=== PATIENT | female | born 1985 | race Caucasian/White ===

== ENCOUNTER → 2018-01-08 | Outpatient (CLI) | payer OTHER ==
[~2018-01-08] MED LIST: ACET325 PO; Amoxicillin500 MG PO; CEPH500 PO; CIPR500 PO; CLIN150 PO; CYCL10 PO; GAVILAX17 GM PO; HYDACE5 PO; Keflex500 MG PO; Kristalose20 GM PO; LEVFLO500 PO; LIDO2L MM; METH10 PO; METO25ER PO; NAPR500 PO; ONDA4ODT MM; OXYACE5T PO; PROM25S PR; RXCEPH500 PO; RXCLIN PO; RXOXYACE PO; Zofran Odt4 MG SL; Zofran Odt8 MG SL
[2018-01-08 15:05] LABS: Specimen Source CERVIX
[2018-01-09 13:15] LABS: Source Cervix
[2018-01-10 13:03] LABS: HPV Genotype 16 Not Detected (NOTDET); HPV Genotype 18 Not Detected (NOTDET)
[2018-01-17 10:25] LABS: HPV High Risk Other Not Detected (NOTDET)
== END ==
LOC: LAB SHORT 12:50 → OLS 12:50
PROVIDERS: Nurse Practitioner Women's Health
DX: Z12.4 Encounter for screening for malignant neoplasm of cervix (principal); Z20.2 Contact with and (suspected) exposure to infections with a predominantly sexual mode of transmission
CPT/HCPCS: 87491; 87591; 87624; G0123

== ENCOUNTER → 2018-01-25 | Outpatient (CLI) | payer OTHER ==
[2018-01-25 11:20] LABS: Source, Urine Catheter
[2018-01-25 13:48] LABS: Appearance, Urine Hazy (Clear); Bilirubin, Urine Neg (Neg); Blood, Urine 5+ (Neg); Color, Urine Yellow (P-Yellow); Glucose Qualitative, Urine Neg (Neg); Ketones, Urine Neg (Neg); Leukocyte Esterase, Urine 1+ (Neg); Nitrite, Urine Pos (Neg); Protein, Urine 1+ (Neg); Urobilinogen, Urine NORM (Normal)
[2018-01-25 14:02] LABS: Red Blood Cells, Urine TNTC /hpf (0-2)
[2018-01-25 14:03] LABS: Bacteria Many /hpf; Squamous Epithelial Cells Few /hpf (Few)
== END | disposition home or self-care (01) ==
LOC: OLS 11:17 → LAB SHORT 11:17
PROVIDERS: Nurse Practitioner Women's Health
DX: R31.9 Hematuria, unspecified (principal)
CPT/HCPCS: 81001

== ENCOUNTER 2018-02-06 23:46 | Emergency (ER) | payer OTHER ==
[~2018-02-06] VITALS: Ht 157.5 cm; Wt 54.4 kg
[2018-02-07 01:00] LABS: Source, Urine Clean Catch
[2018-02-07 01:06] LABS: Appearance, Urine Hazy (Clear); Bilirubin, Urine Neg (Neg); Blood, Urine 5+ (Neg); Color, Urine Yellow (P-Yellow); Glucose Qualitative, Urine Neg (Neg); Ketones, Urine Neg (Neg); Leukocyte Esterase, Urine 2+ (Neg); Nitrite, Urine Neg (Neg); Protein, Urine 2+ (Neg); Specific Gravity, Urine 1.025 (1.003-1.022); Urobilinogen, Urine NORM (Normal)
[2018-02-07 01:15] LABS: White Blood Cells, Urine 25-50 /hpf (0-5)
[2018-02-07 01:16] LABS: Bacteria Many /hpf; Red Blood Cells, Urine 50-100 /hpf (0-2); Squamous Epithelial Cells Mod /hpf (Few); Yeast/Fungi Urine Few /hpf
[2018-02-07 01:29] LABS: BASOPHILS ABSOLUTE AUTO 0.05 K/mm3 (0.00-0.23); BASOPHILS PERCENT AUTO 1 % (0-2); EOSINOPHILS ABSOLUTE AUTO 0.15 K/mm3 (0.00-0.68); EOSINOPHILS PERCENT AUTO 2 % (0-6); Hematocrit 41.8 % (33.0-51.0); Hemoglobin 14.1 g/dL (11.5-16.0); IMMATURE GRAN ABSOLUTE AUTO 0.02 K/mm3 (0.00-0.10); IMMATURE GRAN PERCENT AUTO 0 % (0-1); LYMPHOCYTES PERCENT AUTO 26 % (21-46); MONOCYTES ABSOLUTE AUTO 0.54 K/mm3 (0.16-1.47); MONOCYTES PERCENT AUTO 6 % (4-13); Mean Corpuscular HGB 29.9 pg (26.0-34.0); Mean Corpuscular HGB Conc 33.7 g/dL (31.5-36.5); Mean Corpuscular Volume 89 fL (80-100); Mean Platelet Volume 9.1 fL (9.1-12.4); NEUTROPHILS ABSOLUTE AUTO 6.49 K/mm3 (1.96-9.15); NEUTROPHILS PERCENT AUTO 66 % (41-73); Platelet Count 253 K/mm3 (150-400); RDW Coefficient Variation 12.3 % (11.7-14.2); RDW Standard Deviation 40.3 fL (35.1-46.3); Red Blood Cell Count 4.72 M/mm3 (3.80-5.20); White Blood Cell Count 9.85 K/mm3 (4.00-11.30)
[2018-02-07 01:44] LABS: Anion Gap 5 mmol/L (6-16); Blood Urea Nitrogen 15 mg/dL (8-24); Bun/Creatinine Ratio 25.3 (12.0-20.0); CO2, Blood 27 mmol/L (21-32); Calcium, Blood 8.5 mg/dL (8.5-10.1); Chloride, Blood 108 mmol/L (98-108); Creatinine, Blood 0.59 mg/dL (0.40-1.00); Glomerular Filtration Rate >60 (60-); Glucose, Blood 91 mg/dL (70-99); Potassium, Blood 4.2 mmol/L (3.5-5.5); Sodium, Blood 140 mmol/L (136-145)
[2018-02-07] MEDS ORDERED: CEPH500 PO (02:03)
== END 2018-02-07 02:30 | disposition home or self-care (01) ==
LOC: ER 23:46
PROVIDERS: Emergency Medicine
DX: N39.0 Urinary tract infection, site not specified (principal); R31.9 Hematuria, unspecified; Z88.1 Allergy status to other antibiotic agents; Z88.6 Allergy status to analgesic agent; Z91.041 Radiographic dye allergy status; Z79.2 Long term (current) use of antibiotics; Z79.899 Other long term (current) drug therapy; I10 Essential (primary) hypertension; F17.200 Nicotine dependence, unspecified, uncomplicated
CPT/HCPCS: 36415; 80048; 81001; 81025; 85025; 87086; 99283

== ENCOUNTER → 2018-02-09 | Outpatient (CLI) | payer OTHER | END | disposition home or self-care (01) | LOC: LAB 12:58 → LAB SHORT 12:58 | DX: N39.0 Urinary tract infection, site not specified (principal) | CPT/HCPCS: 87086 ==

== ENCOUNTER → 2019-01-16 | Outpatient (CLI) | payer OTHER ==
[~2019-01-16] MED LIST changes: +METO50ER PO; +Prednisone20 MG PO
[2019-01-16 14:57] LABS: BASOPHILS ABSOLUTE AUTO 0.02 K/mm3 (0.00-0.23); BASOPHILS PERCENT AUTO 0 % (0-2); EOSINOPHILS PERCENT AUTO 1 % (0-6); Hematocrit 41.6 % (33.0-51.0); Hemoglobin 14.2 g/dL (11.5-16.0); IMMATURE GRAN ABSOLUTE AUTO 0.03 K/mm3 (0.00-0.10); IMMATURE GRAN PERCENT AUTO 0 % (0-1); LYMPHOCYTES ABSOLUTE AUTO 1.17 K/mm3 (0.84-5.20); LYMPHOCYTES PERCENT AUTO 16 % (21-46); MONOCYTES ABSOLUTE AUTO 0.52 K/mm3 (0.16-1.47); MONOCYTES PERCENT AUTO 7 % (4-13); Mean Corpuscular HGB 29.2 pg (26.0-34.0); Mean Corpuscular HGB Conc 34.1 g/dL (31.5-36.5); Mean Corpuscular Volume 85 fL (80-100); Mean Platelet Volume 9.6 fL (9.1-12.4); NEUTROPHILS ABSOLUTE AUTO 5.71 K/mm3 (1.96-9.15); NEUTROPHILS PERCENT AUTO 76 % (41-73); Platelet Count 182 K/mm3 (150-400); RDW Coefficient Variation 12.7 % (11.7-14.2); RDW Standard Deviation 39.4 fL (35.1-46.3); Red Blood Cell Count 4.87 M/mm3 (3.80-5.20); White Blood Cell Count 7.55 K/mm3 (4.00-11.30)
[2019-01-16 15:05] LABS: Alanine Aminotransfer (ALT/SGP 83 U/L (12-78); Albumin, Blood 3.7 g/dL (3.4-5.0); Albumin/Globulin Ratio 0.9 (0.8-1.8); Alk Phos 96 U/L (40-126); Anion Gap 8 mmol/L (6-16); Aspartate Aminotrans (AST/SGOT 42 U/L (12-37); Bilirubin, Total 0.4 mg/dL (0.1-1.0); Blood Urea Nitrogen 14 mg/dL (8-24); Bun/Creatinine Ratio 16.1 (12.0-20.0); CO2, Blood 28 mmol/L (21-32); Calcium, Blood 8.6 mg/dL (8.5-10.1); Chloride, Blood 98 mmol/L (98-108); Creatinine, Blood 0.87 mg/dL (0.40-1.00); Globulin, Blood 4.1 g/dL (2.2-4.0); Glomerular Filtration Rate >60 (60-); Glucose, Blood 118 mg/dL (70-99); Potassium, Blood 4.2 mmol/L (3.5-5.5); Sodium, Blood 134 mmol/L (136-145); Total Protein, Blood 7.8 g/dL (6.4-8.2)
[2019-01-18 01:08] LABS: HBSAG SCREEN Negative (Negative); HEP A AB, IGM Negative (Negative); HEP B CORE AB, IGM Negative (Negative); HEP C VIRUS AB <0.1 (0.0-0.9)
== END | disposition home or self-care (01) ==
LOC: LAB EV 14:47 → LAB SHORT 14:47
PROVIDERS: Physician Assistant
DX: M79.10 Myalgia, unspecified site (principal); Z87.448 Personal history of other diseases of urinary system
CPT/HCPCS: 80053; 80074; 85025; 85651; 86140

== ENCOUNTER 2021-10-30 05:12 | Emergency (ER) | payer OTHER ==
[~2021-10-30] VITALS: Ht 157.5 cm; Wt 61.2 kg
== END 2021-10-30 07:16 | disposition home or self-care (01) ==
LOC: ER 05:12
DX: S61.211A Laceration without foreign body of left index finger without damage to nail, initial encounter (principal); I10 Essential (primary) hypertension; Z88.1 Allergy status to other antibiotic agents; Z88.8 Allergy status to other drugs, medicaments and biological substances; Z91.048 Other nonmedicinal substance allergy status; Z79.899 Other long term (current) drug therapy; W45.8XXA Other foreign body or object entering through skin, initial encounter
CPT/HCPCS: 12001; 99282-25

== ENCOUNTER 2022-02-11 19:05 | Emergency (ER) | payer OTHER ==
[~2022-02-11] VITALS: Ht 157.5 cm; Wt 65.8 kg
[2022-02-11 21:02] LABS: Influenza A, PCR POSITIVE (NEGATIVE); Influenza B, PCR NEGATIVE (NEGATIVE); Resp Syncytial Virus, PCR NEGATIVE (NEGATIVE); SARS-Cov-2 (COVID-19) PCR, MMC NEGATIVE (NEGATIVE)
== END 2022-02-11 21:29 | disposition home or self-care (01) ==
LOC: ER 19:05
PROVIDERS: Physician Assistant
DX: J11.1 Influenza due to unidentified influenza virus with other respiratory manifestations (principal); I10 Essential (primary) hypertension; R00.0 Tachycardia, unspecified; F17.210 Nicotine dependence, cigarettes, uncomplicated; Z88.6 Allergy status to analgesic agent; Z79.899 Other long term (current) drug therapy; Z88.1 Allergy status to other antibiotic agents; Z91.041 Radiographic dye allergy status; Z20.822 Contact with and (suspected) exposure to COVID-19
CPT/HCPCS: 0241U; A9270

== ENCOUNTER 2023-07-09 01:31 | Emergency (ER) | payer OTHER ==
[~2023-07-09] VITALS: Ht 157.5 cm; Wt 70.3 kg
[~2023-07-09 01:31] MED LIST changes: +Ondansetron Odt8 MG MM
[2023-07-09 01:43] VITALS: BP 161/99
[2023-07-09] MEDS ORDERED: Bactrim Ds Tab1 EACH PO (02:56)
[2023-07-09] MEDS ORDERED: CEPH500 PO (02:56)
== END 2023-07-09 03:09 | disposition home or self-care (01) ==
LOC: ER 01:31
DX: L03.116 Cellulitis of left lower limb (principal); F17.210 Nicotine dependence, cigarettes, uncomplicated; I10 Essential (primary) hypertension; Z88.6 Allergy status to analgesic agent; Z88.1 Allergy status to other antibiotic agents; Z91.041 Radiographic dye allergy status; Z79.899 Other long term (current) drug therapy
CPT/HCPCS: 10060; 99283-25; A9270

== ENCOUNTER → 2024-06-10 | Outpatient (CLI) | payer OTHER ==
[~2024-06-10] MED LIST changes: +Bactrim Ds Tab1 EACH PO; +METH40 PO
== END | disposition home or self-care (01) ==
LOC: LAB SHORT 18:40 → LAB 18:40
DX: L03.116 Cellulitis of left lower limb (principal)
CPT/HCPCS: 87070; 87075; 87077; 87147; 87186; 87205

== ENCOUNTER 2024-08-03 01:33 | Emergency (ER) | payer OTHER ==
[~2024-08-03] VITALS: Ht 157.5 cm; Wt 54.4 kg
[2024-08-03 01:57] VITALS: BP 132/100
[2024-08-03] MEDS ORDERED: Acetaminophen 500 MG Tab PO ONE (02:15)
== END 2024-08-03 02:57 | disposition home or self-care (01) ==
LOC: ER 01:33
DX: S10.0XXA Contusion of throat, initial encounter (principal); W01.198A Fall on same level from slipping, tripping and stumbling with subsequent striking against other object, initial encounter; I10 Essential (primary) hypertension; F17.200 Nicotine dependence, unspecified, uncomplicated; Z88.1 Allergy status to other antibiotic agents; Z88.8 Allergy status to other drugs, medicaments and biological substances; Z91.041 Radiographic dye allergy status
CPT/HCPCS: 99283

== ENCOUNTER 2024-08-17 11:05 | Emergency (ER) | payer OTHER ==
[~2024-08-17] VITALS: Ht 157.5 cm; Wt 59.0 kg
[2024-08-17 11:27] VITALS: BP 160/118
[2024-08-17 12:04] LABS: BASOPHILS ABSOLUTE AUTO 0.03 K/mm3 (0.00-0.23); BASOPHILS PERCENT AUTO 0 % (0-2); EOSINOPHILS ABSOLUTE AUTO 0.36 K/mm3 (0.00-0.68); EOSINOPHILS PERCENT AUTO 5 % (0-6); Hematocrit 43.6 % (33.0-51.0); Hemoglobin 14.4 g/dL (11.5-16.0); IMMATURE GRAN ABSOLUTE AUTO 0.01 K/mm3 (0.00-0.10); IMMATURE GRAN PERCENT AUTO 0 % (0-1); LYMPHOCYTES ABSOLUTE AUTO 1.53 K/mm3 (0.84-5.20); LYMPHOCYTES PERCENT AUTO 20 % (21-46); MONOCYTES ABSOLUTE AUTO 0.65 K/mm3 (0.16-1.47); MONOCYTES PERCENT AUTO 8 % (4-13); Mean Corpuscular HGB 29.1 pg (26.0-34.0); Mean Corpuscular Volume 88 fL (80-100); Mean Platelet Volume 9.2 fL (9.1-12.4); NEUTROPHILS ABSOLUTE AUTO 5.28 K/mm3 (1.96-9.15); NEUTROPHILS PERCENT AUTO 67 % (41-73); Platelet Count 245 K/mm3 (150-400); RDW Coefficient Variation 12.7 % (11.7-14.2); RDW Standard Deviation 41.3 fL (35.1-46.3); Red Blood Cell Count 4.94 M/mm3 (3.80-5.20); White Blood Cell Count 7.86 K/mm3 (4.00-11.30)
[2024-08-17 12:18] LABS: Albumin, Blood 3.7 g/dL (3.4-5.0); Albumin/Globulin Ratio 0.8 (0.8-1.8); Bilirubin, Total 0.3 mg/dL (0.1-1.0); Bun/Creatinine Ratio 19.3 (12.0-20.0); Calcium, Blood 9.2 mg/dL (8.5-10.1); Creatinine, Blood 0.62 mg/dL (0.40-1.00); Globulin, Blood 4.4 g/dL (2.2-4.0); Potassium, Blood 5.1 mmol/L (3.5-5.5); Total Protein, Blood 8.1 g/dL (6.4-8.2)
[2024-08-17] MEDS ORDERED: Fluorescein Sod 1MG Opth Strips LEFTEYE ONE (13:25)
[2024-08-17] MEDS ORDERED: Tetracaine HCl/Pf 0.5% Opth Soln 4 ml LEFTEYE ONE (13:25)
[2024-08-17] MEDS ORDERED: Prochlorperazine Edisylate 10 mg Vial IV ONE (13:30)
[2024-08-17] MEDS ORDERED: Acetaminophen/Aspirin/Caffeine 250/250/65 MG PO ONE (13:30)
[2024-08-17] MEDS ORDERED: ONDA4ODT MM (14:44)
[2024-08-17] MEDS ORDERED: ERYT1OIN LEFTEYE (14:44)
[2024-08-17] MEDS ORDERED: Erythromycin 0.5% Opth Oint 1 gm LEFTEYE ONE (14:45)
[2024-08-18] MEDS ORDERED: MOXIOPS UD (06:04)
[2024-08-18] MEDS ORDERED: ERYT.5TO BOTHEYES (06:05)
== END 2024-08-17 15:35 | disposition home or self-care (01) ==
LOC: ER 11:05
PROVIDERS: Physician Assistant
DX: S05.02XA Injury of conjunctiva and corneal abrasion without foreign body, left eye, initial encounter (principal); I10 Essential (primary) hypertension; R51.9 Headache, unspecified; F17.200 Nicotine dependence, unspecified, uncomplicated; X58.XXXA Exposure to other specified factors, initial encounter; Z79.899 Other long term (current) drug therapy; Z88.1 Allergy status to other antibiotic agents; Z88.5 Allergy status to narcotic agent; Z91.041 Radiographic dye allergy status
CPT/HCPCS: 70450; 80053; 84703; 85025; 96374; 99284-25; A9270; J0780

== ENCOUNTER 2024-08-17 22:27 | Emergency (ER) | payer OTHER ==
[~2024-08-17] VITALS: Ht 157.5 cm; Wt 59.0 kg
[~2024-08-17 22:27] MED LIST changes: +ERYT1OIN LEFTEYE
[2024-08-18] MEDS ORDERED: Fluorescein Sod 1MG Opth Strips LEFTEYE ONE (02:25)
[2024-08-18] MEDS ORDERED: Tetrahydrozoline 0.05% Opth Soln 15 ML LEFTEYE ONE (02:25)
[2024-08-18] MEDS ORDERED: Tetracaine HCl/Pf 0.5% Opth Soln 4 ml ONE (04:16)
[2024-08-18] MEDS ORDERED: OPTH LEFTEYE ONE (05:30)
[2024-08-18] MEDS ORDERED: MOXIFLOXACIN 0.5% LEFTEYE ONE (05:30)
[2024-08-18] MEDS ORDERED: Erythromycin 0.5% Opth Oint 1 gm LEFTEYE ONE (05:35)
[2024-08-18] MEDS ORDERED: MOXIOPS UD (06:04)
[2024-08-18] MEDS ORDERED: ERYT.5TO BOTHEYES (06:05)
[2024-08-18 06:17] VITALS: BP 130/86
[2024-08-18] MEDS ORDERED: Tetracaine HCl/Pf 0.5% Opth Soln 4 ml BOTHEYES ONE (14:20)
== END 2024-08-18 06:20 | disposition home or self-care (01) ==
LOC: ER 22:27
DX: H16.002 Unspecified corneal ulcer, left eye (principal); F17.200 Nicotine dependence, unspecified, uncomplicated; Z79.899 Other long term (current) drug therapy; Z88.1 Allergy status to other antibiotic agents; Z88.5 Allergy status to narcotic agent; Z91.040 Latex allergy status; S05.02XA Injury of conjunctiva and corneal abrasion without foreign body, left eye, initial encounter; I10 Essential (primary) hypertension; R51.9 Headache, unspecified; X58.XXXA Exposure to other specified factors, initial encounter; Z91.041 Radiographic dye allergy status
CPT/HCPCS: 70450; 80053; 84703; 85025; 96374; 99283; 99284-25; A9270; J0780

== ENCOUNTER 2024-09-13 19:20 | Emergency (ER) | payer OTHER ==
[~2024-09-13] VITALS: Ht 157.5 cm; Wt 59.0 kg
[~2024-09-13 19:20] MED LIST changes: +ERYT.5TO BOTHEYES; +MOXIOPS UD
[2024-09-13 19:38] VITALS: BP 154/96
[2024-09-13] MEDS ORDERED: Methadone HCL 10 MG TAB PO ONE (20:00)
== END 2024-09-13 20:24 | disposition home or self-care (01) ==
LOC: ER 19:20
DX: F11.90 Opioid use, unspecified, uncomplicated (principal); Z76.0 Encounter for issue of repeat prescription; I10 Essential (primary) hypertension; F17.210 Nicotine dependence, cigarettes, uncomplicated; Z79.899 Other long term (current) drug therapy; Z88.6 Allergy status to analgesic agent; Z88.1 Allergy status to other antibiotic agents; Z91.041 Radiographic dye allergy status
CPT/HCPCS: 99281; A9270

== ENCOUNTER 2024-09-14 20:52 | Emergency (ER) | payer OTHER ==
[~2024-09-14] VITALS: Ht 157.5 cm; Wt 59.0 kg
[2024-09-14 20:57] VITALS: BP 157/105
[2024-09-14] MEDS ORDERED: Methadone HCL 10 MG TAB PO ONE (21:00)
[2024-09-14] MEDS ORDERED: Methadone HCL 10 MG TAB ONE (21:06)
== END 2024-09-14 21:18 | disposition home or self-care (01) ==
LOC: ER 20:52
DX: Z76.89 Persons encountering health services in other specified circumstances (principal); I10 Essential (primary) hypertension; F17.200 Nicotine dependence, unspecified, uncomplicated; Z88.1 Allergy status to other antibiotic agents; Z88.6 Allergy status to analgesic agent; Z91.041 Radiographic dye allergy status; Z79.899 Other long term (current) drug therapy
CPT/HCPCS: 99281; A9270

== ENCOUNTER 2024-09-15 19:25 | Emergency (ER) | payer OTHER ==
[~2024-09-15] VITALS: Ht 157.5 cm; Wt 59.0 kg
[2024-09-15] MEDS ORDERED: Methadone HCL 10 MG TAB PO ONE (19:35)
[2024-09-15 19:45] VITALS: BP 137/102
== END 2024-09-15 20:30 | disposition home or self-care (01) ==
LOC: ER 19:25
DX: Z76.89 Persons encountering health services in other specified circumstances (principal); F11.20 Opioid dependence, uncomplicated; F17.200 Nicotine dependence, unspecified, uncomplicated; I10 Essential (primary) hypertension; Z88.1 Allergy status to other antibiotic agents; Z88.6 Allergy status to analgesic agent; Z91.041 Radiographic dye allergy status; Z79.899 Other long term (current) drug therapy
CPT/HCPCS: 99281

== ENCOUNTER 2024-10-19 23:37 | Emergency (ER) | payer OTHER ==
[~2024-10-19] VITALS: Ht 157.5 cm; Wt 72.6 kg
[2024-10-19] MEDS ORDERED: Methadone HCL 10 MG TAB PO ONE (23:50)
[2024-10-20 00:03] VITALS: BP 159/113
== END 2024-10-20 00:10 | disposition home or self-care (01) ==
LOC: ER 23:37
DX: Z76.89 Persons encountering health services in other specified circumstances (principal); I10 Essential (primary) hypertension; F17.210 Nicotine dependence, cigarettes, uncomplicated; Z88.1 Allergy status to other antibiotic agents; Z88.5 Allergy status to narcotic agent; Z91.041 Radiographic dye allergy status; Z79.899 Other long term (current) drug therapy
CPT/HCPCS: 99281; A9270

== ENCOUNTER 2024-11-03 15:21 | Emergency (ER) | payer OTHER ==
[~2024-11-03] VITALS: Ht 162.6 cm; Wt 72.6 kg
[2024-11-03 15:56] VITALS: BP 189/120
[2024-11-03] MEDS ORDERED: Methadone HCL 10 MG TAB PO ONE (16:00)
== END 2024-11-03 16:03 | disposition home or self-care (01) ==
LOC: ER 15:21
DX: Z76.0 Encounter for issue of repeat prescription (principal); I10 Essential (primary) hypertension; F17.200 Nicotine dependence, unspecified, uncomplicated; Z79.899 Other long term (current) drug therapy; Z88.1 Allergy status to other antibiotic agents; Z88.6 Allergy status to analgesic agent; Z91.041 Radiographic dye allergy status
CPT/HCPCS: 99281; A9270

== ENCOUNTER 2024-11-10 22:16 | Emergency (ER) | payer OTHER ==
[~2024-11-10] VITALS: Ht 157.5 cm; Wt 63.5 kg
[2024-11-10 22:38] VITALS: BP 150/110
[2024-11-10] MEDS ORDERED: Methadone HCL 10 MG TAB PO ONE (22:45)
== END 2024-11-10 22:56 | disposition home or self-care (01) ==
LOC: ER 22:16
DX: Z76.89 Persons encountering health services in other specified circumstances (principal); I10 Essential (primary) hypertension; F17.210 Nicotine dependence, cigarettes, uncomplicated; Z88.1 Allergy status to other antibiotic agents; Z91.041 Radiographic dye allergy status; Z88.5 Allergy status to narcotic agent; Z79.899 Other long term (current) drug therapy
CPT/HCPCS: 99281; A9270

== ENCOUNTER 2024-12-18 03:35 | Emergency (ER) | payer OTHER ==
[~2024-12-18] VITALS: Ht 157.5 cm; Wt 150.0 kg
[2024-12-18 03:48] VITALS: BP 132/91
[2024-12-18 04:00] LABS: BASOPHILS ABSOLUTE AUTO 0.04 K/mm3 (0.00-0.23); BASOPHILS PERCENT AUTO 0 % (0-2); EOSINOPHILS ABSOLUTE AUTO 0.19 K/mm3 (0.00-0.68); EOSINOPHILS PERCENT AUTO 2 % (0-6); Hematocrit 39.1 % (33.0-51.0); Hemoglobin 13.2 g/dL (11.5-16.0); IMMATURE GRAN ABSOLUTE AUTO 0.02 K/mm3 (0.00-0.10); IMMATURE GRAN PERCENT AUTO 0 % (0-1); LYMPHOCYTES ABSOLUTE AUTO 2.32 K/mm3 (0.84-5.20); LYMPHOCYTES PERCENT AUTO 26 % (21-46); MONOCYTES ABSOLUTE AUTO 1.33 K/mm3 (0.16-1.47); MONOCYTES PERCENT AUTO 15 % (4-13); Mean Corpuscular HGB 28.3 pg (26.0-34.0); Mean Corpuscular HGB Conc 33.8 g/dL (31.5-36.5); Mean Corpuscular Volume 84 fL (80-100); Mean Platelet Volume 8.8 fL (9.1-12.4); NEUTROPHILS ABSOLUTE AUTO 5.02 K/mm3 (1.96-9.15); NEUTROPHILS PERCENT AUTO 56 % (41-73); Platelet Count 268 K/mm3 (150-400); RDW Coefficient Variation 13.1 % (11.7-14.2); RDW Standard Deviation 40.2 fL (35.1-46.3); Red Blood Cell Count 4.66 M/mm3 (3.80-5.20); White Blood Cell Count 8.92 K/mm3 (4.00-11.30)
[2024-12-18] MEDS ORDERED: NS 1,000 ML IV SCH (04:05)
[2024-12-18] MEDS ORDERED: Phenazopyridine HCl 100 MG Tab PO ONE (04:05)
[2024-12-18 04:22] LABS: Albumin, Blood 3.4 g/dL (3.4-5.0); Albumin/Globulin Ratio 0.7 (0.8-1.8); Bilirubin, Total 0.4 mg/dL (0.1-1.0); Bun/Creatinine Ratio 17.2 (12.0-20.0); Calcium, Blood 8.5 mg/dL (8.5-10.1); Creatinine, Blood 0.7 mg/dL (0.40-1.00); Globulin, Blood 4.6 g/dL (2.2-4.0); Potassium, Blood 4.5 mmol/L (3.5-5.5)
[2024-12-18 07:38] LABS: Source, Urine Clean Catch
[2024-12-18 07:49] LABS: Appearance, Urine Hazy (Clear); Bilirubin, Urine Neg (Neg); Blood, Urine 2+ (Neg); Color, Urine Amber (P-Yellow); Glucose Qualitative, Urine Neg (Neg); Ketones, Urine 1+ (Neg); Leukocyte Esterase, Urine 1+ (Neg); Nitrite, Urine Pos (Neg); Protein, Urine 2+ (Neg); Urobilinogen, Urine 1+ (Normal)
[2024-12-18 08:03] LABS: Bacteria Many /hpf; Mucus Light (0-Heavy); Squamous Epithelial Cells Rare /hpf (Few)
[2024-12-18 08:05] LABS: Hyaline Casts 0-2 /lpf (0-2)
[2024-12-18] MEDS ORDERED: Ciprofloxacin 500 MG Tab PO ONE (08:25)
[2024-12-18] MEDS ORDERED: CIPR500 PO (08:26)
== END 2024-12-18 08:47 | disposition home or self-care (01) ==
LOC: ER 03:35
PROVIDERS: Emergency Medicine
DX: R10.9 Unspecified abdominal pain (principal); E86.0 Dehydration; I10 Essential (primary) hypertension; F17.200 Nicotine dependence, unspecified, uncomplicated; Z88.1 Allergy status to other antibiotic agents; Z88.5 Allergy status to narcotic agent; Z91.041 Radiographic dye allergy status; Z79.899 Other long term (current) drug therapy
CPT/HCPCS: 76770; 80053; 81001; 84703; 85025; 87077; 87086; 87186; 99284-25; A9270; J7030

== ENCOUNTER 2025-01-10 01:03 | Emergency (ER) | payer OTHER ==
[~2025-01-10] VITALS: Ht 157.5 cm; Wt 68.0 kg
[2025-01-10 02:55] VITALS: BP 159/115
[2025-01-10 03:25] LABS: Source, Urine Clean Catch
[2025-01-10 03:40] LABS: Bilirubin, Urine Neg (Neg); Blood, Urine Neg (Neg); Glucose Qualitative, Urine Neg (Neg); Ketones, Urine Neg (Neg); Leukocyte Esterase, Urine Neg (Neg); Nitrite, Urine Neg (Neg); Protein, Urine Neg (Neg); Urobilinogen, Urine NORM (Normal)
[2025-01-10 03:41] LABS: Appearance, Urine Hazy (Clear); Color, Urine Yellow (P-Yellow)
[2025-01-10 03:42] LABS: Bacteria Few /hpf; Red Blood Cells, Urine 0-2 /hpf (0-2); Squamous Epithelial Cells Rare /hpf (Few); White Blood Cells, Urine 0-2 /hpf (0-5)
== END 2025-01-10 03:55 | disposition left against medical advice (07) ==
LOC: ER 01:03
PROVIDERS: Emergency Medicine
DX: R10.32 Left lower quadrant pain (principal); R11.10 Vomiting, unspecified; Z53.21 Procedure and treatment not carried out due to patient leaving prior to being seen by health care provider
CPT/HCPCS: 81001; 81025